=== PATIENT | female | born 1990 | race Two or more races ===

== ENCOUNTER 2025-01-06 18:45 | Emergency (ER) | payer MEDICAID, SELFPAY ==
--- NOTE | ~2025-01-06 | XR_ITS ---
CLINICAL HISTORY: fall, pain 3 view right foot Comparison: None provided Findings: No fractures or dislocations. No significant loss of joint space, osteophytes, or erosions. No ankle effusion. No radiopaque foreign body. IMPRESSION: 1. No acute findings. This document has been electronically signed by: Gal Yu MD on 01/06/2025 20:11:14
--- NOTE | ~2025-01-06 | XR_ITS ---
CLINICAL HISTORY: fall, pain 3 views lumbar spine Comparison: None provided Findings: Normal vertebral body alignment. No acute fractures or dislocation. No significant degenerative change. IMPRESSION: No acute findings. This document has been electronically signed by: Gal Yu MD on 01/06/2025 20:08:01
--- NOTE | ~2025-01-06 | XR_ITS ---
CLINICAL HISTORY: fall, pain 3 view right ankle Comparison: None provided Findings: No acute fractures or dislocations. No significant arthritic change or erosions. No ankle effusion. No radiopaque foreign body. IMPRESSION: 1. No acute findings. This document has been electronically signed by: Gal Yu MD on 01/06/2025 20:10:59
--- NOTE | ~2025-01-06 | XR_ITS ---
CLINICAL HISTORY: fall, pain 4 view right knee Comparison: None provided Findings: No fractures or dislocations. No significant loss of joint space, osteophytes, or erosions. No joint effusion. No radiopaque foreign body. IMPRESSION: 1. No acute findings. This document has been electronically signed by: Gal Yu MD on 01/06/2025 20:09:41
[2025-01-06 18:52] VITALS: BP 138/76; PULSE 87; O2SAT 98
[2025-01-06 18:55] VITALS: BP 112/67; PULSE 86; RESP 22; TEMP 36.8; O2SAT 100; BMI 39.1
--- NOTE | 2025-01-06 18:55 | ED.FALL ---
HPI - Fall General Chief Complaint: Fall Stated Complaint: [place] and fell at mall, back and knee pain Time Seen by Provider: 01/06/25 20:58 Source: patient and old records reviewed Mode of arrival: ambulatory Limitations: no limitations History of Present Illness ED Provider: PORTER ALVARADO Narrative: 34 yo female with PMH of anemia not on thinners shopping at the [employer] slipped in water hurting R knee, R low back, R foot and ankle. Unable to bear weight after. Prior sprain to R ankle 3 years ago. No headstrike, neck pain, LOC. 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) Fall from: standing Fall witnessed: yes, by family Place fall occurred: other Loss of consciousness: none Prolonged down time: no Symptoms prior to fall: none Context: tripped/slipped Location of injury: back Location of injury - extremities: right: knee, ankle and foot Severity: moderate Quality: aching Associated symptoms (after fall): unable to walk Related Data Previous Rx's ?Medication ?Instructions ?Recorded cyclobenzaprine 10 mg tablet 10 mg PO TID PRN muscle spasm #20 01/06/25 tabs ibuprofen 600 mg tablet 600 mg PO Q6H PRN pain #30 tabs 01/06/25 lidocaine 5 % topical patch 1 patch topical DAILY #30 ea 01/06/25 Allergies Allergy/AdvReac Type Severity Reaction Status Date / Time Penicillins Allergy Hives Verified 01/06/25 18:57 Review of Systems Review of Systems: Constitutional : No Fever, No Chills ENT/Mouth : No Ear Pain, No Hoarseness, No sore throat Eyes: No Eye Pain, No Swelling, No Redness, No Foreign Body Cardiovascular : No Chest Pain, No SOB Respiratory : No Cough, No Dyspnea Gastrointestinal : No Nausea, No Vomiting, No Diarrhea, No abdominal Pain Genitourinary : No Dysuria, No Hematuria Musculoskeletal : positive joint pain, No Myalgias, pos Joint Swelling Skin : No Skin lacerations, No rash Neuro : No Weakness, No Numbness, No Loss of Consciousness, No Dizziness, No Headache All other systems reviewed and are negative PMFSH Past Medical History Attestation statement: The following information was validated with the patient. Source: old records reviewed Medical History Anemia Social History Social History (Updated 01/06/25 @ 21:19 by Miriam Blandon DO) Patient Tobacco Use Status: Never used Tobacco Physical Exam Vital Signs: Vital Signs: Last Vital Signs Temp 97.9 F 01/06/25 19:39 Pulse 92 01/06/25 19:39 Resp 24 H 01/06/25 19:39 BP 127/60 01/06/25 19:39 Pulse Ox 100 01/06/25 19:39 O2 Del Method Room Air 01/06/25 19:39 BMI result Body Mass Index 39.1 Appearance: Alert. Oriented X3. No acute distress. Eyes: Pupils equal, round and reactive to light. ENT: Pharynx normal. atraumatic Neck: Normal inspection. Neck supple. CVS: Normal heart rate and rhythm. Pulses normal. Respiratory: No respiratory distress. Breath sounds normal. Abdomen:atraumatic Back: ttp along R lower lumbar spine/paraspinal area Skin: Skin warm and dry. Normal skin color. Extremities: No lower extremity edema. Neuro: Oriented X 3. No motor deficit. No sensory deficit. 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 Deferred additional HPI, ROS, PE to primary provider. 34 yo female with history of MARCK here after slip and fall hitting right foot, right knee, ankle, lower back. Denies hitting head or LOC. Denies hitting head or LOC. Will obtain x-rays. VSS Medical Decision Making Medical Decision Making [facility] Narrative: 34 yo female health no thinners s/p trip and fall on water at [employer] no head strike or LOC has pain in RLE and RL back she is NV intact will obtain xrays. Suspect sprain, strain, fracture. If xrays negative will need crutches and air cast Differential Diagnosis Differential Diagnoses: The differential diagnosis associated with the presentation includes sprain, strain, fracture Admission/Observation Consideration of admission/observation: Escalation of care including admission/observation considered GCS 15 stable for DC Independent Interpretation I performed an independent interpretation of an: Plain X-Ray (no trauma) Radiology Impression Discussion of test interpretation with radiology: I have reviewed the radiologist's reading. Prescription Management I considered prescription management with: Pain Medication and Other Discharge Plan Discharge Clinical Impression: Ankle sprain, Lumbar back sprain, Right knee sprain Patient Disposition: Home, Self-Care Instructions: Ankle Sprain (ED), Knee Sprain (ED), Back Pain (ED) Additional Instructions: xrays of R knee, foot, low back, foot show no broken bones you likely have a ligament injury to R ankle and possibly knee. make sure you follow up with your doctor rest and keep leg elevated use ice for 15 min with towel on skin between ice pack alternate tylenol and motrin for pain do not drink with muscle relaxer crutches x 1 week and air cast for 10 days Prescriptions: New cyclobenzaprine 10 mg tablet 10 mg PO TID PRN (Reason: muscle spasm) Qty: 20 0RF lidocaine 5 % adhesive patch,medicated 1 patch topical DAILY Qty: 30 0RF Rx Instructions: leave on most painful area for up to 12 hrs ibuprofen 600 mg tablet 600 mg PO Q6H PRN (Reason: pain) Qty: 30 0RF Stand Alone Forms: Work/School Release Print Language: Welsh
[2025-01-06 19:39] VITALS: BP 127/60; PULSE 92; RESP 24; TEMP 36.6; O2SAT 100
--- OUTSIDE RECORDS SUMMARY | 2025-01-06 21:08 | XMS_ITS | Clinical Summary ---
Author Organization [facility] Address [address] [place] [address] Care Team Providers Care Floor Refinisher Name Role Phone Janette Prado MD Primary Care Provider [phone] Allergies Active Allergy Reactions Criticality Noted Date Comments Molds & Smuts Other 03/01/2024 Short Ragweed Pollen Ext Pruritus (itching) 08/2019 Medications predniSONE (DELTASONE) 10 MG tablet 6 tabs by mouth day 1, 5 tabs by mouth day 2, 4 tabs by mouth day 3, 3 tabs of mouth day 4, 2 tabs of all day 5, 1 tab by mouth day 6 and 1 tab by mouth day 7. 22 tablet 03/01/2024 Active Encounters Date Type Department Care Team Description 12/29/2024 Telephone [facility] [employer] [employer] from Last 3 Months Immunizations Immunization Administration Dates Next Due Influenza,injectable,MDCK, Prsrv Fr,Quad 024 Influenza,seasonal,trivalent ,preservative (FLUZONE MDV) 02/26/2014 MMR 05/25/2024 Tdap 04/29/2024,12/26/2019,12/07/2013 influenza,seasonal,trivalent ,PF (Fluzone, Fluarix, Flulaval) 06/16/2012 Social History Tobacco Use Types Packs/Day Years Used Date Smoking Tobacco: Never Tobacco Cessation:Counseling Given: Not Answered Alcohol Use Standard Drinks/Week Comments Not Asked 0 (1 standard drink = 0.6 oz pur e alcohol) Intimate Partner Violence Answer Date R ecorded Fear of Current or Ex-Partner Not on file Emotionally Abused Not on file 01/13/2023 Physically Abused Not on file 01/13/2023 Sexually Abused Not on file 01/13/2023 Feel Safe at Home Not on file 01/13/2023 Comments Unknown Sex and Gender Information Value Date Recorded Sex Assigned at Not on file Legal Sex Female 1:57 AM EDT Gender Identity Not on file Sexual Orientation Not on file Last Filed Vital Signs Vital Sign Reading Time Taken Comments Blood Pressure 122/78 03/01/2024 9:34 AM EDT Pulse 82 03/01/2024 9:34 AM EDT Temperature 37.1 C (98.7 F) 03/01/2024 9:34 AM EDT Respiratory Rate 16 03/01/2024 9:34 AM EDT Oxygen Saturation 96% 03/01/2024 9:34 AM EDT Inhaled Oxygen Concentration - - Weight - - Height 152.4 cm (5') 12/26/2013 7:45 PM EDT Body Mass Index - - Plan of Treatment Health Maintenance Due Date Last Done Comments Pap Smear 2006 Hep B (1 of 3 - 19+ 3-dose series) 2009 COVID-19 Vaccine ( - 2023-2 5 season) 2024 Influenza (#1) 2025 04/29/2024, 02/26/2014, 06/16/2012 DTaP/Tdap/Td (4 - Td or Tdap) 04/29/2034, 12/26/2019, 12/07/2013 Zoster (Shingrix) (1 of 2) 2040 Hepatitis C Screening Completed 03/10/2019 HPV Vaccine (No Doses Required) Completed Hep A Aged Out No longer eligi ble based on patient's age to complete this topic Hib Aged Out No longer eligi ble based on patient's age to complete this topic Meningococcal ACWY Aged Out No longer eligible based on patient's age to complete this topic Pneumococcal Aged Out No longer eligi ble based on patient's age to complete this topic Insurance MEDICAID [employer] Care Teams Floor 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
[2025-01-06] MEDS: HYDROcodone Bit/Acetam 5/325 TABLET 1 TAB PO (21:28)
[2025-01-06 21:42] VITALS: BP 98/71; PULSE 75; RESP 17; TEMP 36.7; O2SAT 98
== END 2025-01-06 21:25 | disposition home or self-care (01) ==
PROVIDERS: Emergency Provider Emergency Medicine; PCP Family Medicine
DX: S93.401A Sprain of unspecified ligament of right ankle, initial encounter (principal); S83.91XA Sprain of unspecified site of right knee, initial encounter; S33.5XXA Sprain of ligaments of lumbar spine, initial encounter; W01.0XXA Fall on same level from slipping, tripping and stumbling without subsequent striking against object, initial encounter; Y93.9 Activity, unspecified; Y92.59 Other trade areas as the place of occurrence of the external cause; Y99.9 Unspecified external cause status; M25.561 Pain in right knee; M54.50 Low back pain, unspecified; M25.571 Pain in right ankle and joints of right foot; D64.9 Anemia, unspecified
CPT/HCPCS: 72100; 73564; 73610; 73630; 99283

== ENCOUNTER → 2025-01-06 18:58 | Outpatient (BNV) | payer MEDICAID, SELFPAY | PROVIDERS: Emergency Provider Emergency Medicine; Visit Provider Radiology Diagnostic Radiology | DX: M25.561 Pain in right knee (principal); M25.571 Pain in right ankle and joints of right foot; M54.50 Low back pain, unspecified; W01.0XXA Fall on same level from slipping, tripping and stumbling without subsequent striking against object, initial encounter | CPT/HCPCS: 72100; 73564; 73610; 73630 ==